=== PATIENT | male | born 1960 | race Caucasian/White ===

== ENCOUNTER 2016-09-10 04:37 | Emergency (ER) | payer OTHER ==
--- NOTE | 2016-09-10 07:10 | ED CLINICAL REPORT ---
Clinical Report - Physicians/Mid Levels [facility] [address] [place] [address] 09/10/2016 4:38 Patient: RANDY WATERMAN Time Seen: 04:52. Arrived- By private vehicle. Historian- patient. HISTORY OF PRESENT ILLNESS Chief Complaint: WEAKNESS. This started about 1 week ago and is still present. The patient has had weakness. No numbness, tingling, visual disturbance, impaired swallowing or recent fall. No impaired speech (Pt states he has been dropping things intermittently with both hands.). No difficulty walking. At its maximum deficit described as mild. When seen in the E.D., it was gone. No dizziness, altered mental status, seizure or blackouts. Usually is alert and oriented X3 and has normal mobility. (PT states he has not been to a doctor in some time, and wonders if he "might be a diabetic".). Similar symptoms previously: None. Recent medical care: The patient was seen recently by a health care provider. ( Pt had a dental extraction 1 week ago.). REVIEW OF SYSTEMS No fever, head injury, chest pain, difficulty breathing or cough. No sputum production, sore throat, abdominal pain, nausea or black stools. No difficulty with urination, skin rash, enlarged lymph nodes, joint pain or vomiting. No bloody stools or back pain. The patient has had a headache (for 2 days). He has had diarrhea (for 2 days). All systems otherwise negative, except as recorded above. PAST HISTORY Problems: no known problems. Additional Surgeries: Shoulder Surgery. Wrist surgery. Medications: Advil Oral. Allergies: NKDA. SOCIAL HISTORY Never smoker. No alcohol use or drug use. ADDITIONAL NOTES The nursing notes have been reviewed. PHYSICAL EXAM Vital Signs: 09/10/2016 04:46 BP: 100/55. HR: 103. RR: 20. O2 saturation: 94%. Temp: 98.6 F. Pain level now: 5/10. Have been reviewed. Appearance: Alert. No acute distress. Head: Head atraumatic. Eyes: Pupils equal, round and reactive to light. ENT: Normal ENT inspection. Airway intact. (Pt has a socket which is closing and appears to have healthy tissue. No gingival lesions otherwise.). Neck: Normal inspection. Neck supple. CVS: Normal heart rate and rhythm. Heart sounds normal. Pulses normal. Respiratory: No respiratory distress. Breath sounds normal. Abdomen: Soft and nontender. Back: Normal inspection. No CVA tenderness. Skin: Skin warm and dry. Normal skin color. No rash. Normal skin turgor. Extremities: Extremities exhibit normal ROM. No lower extremity edema. Neuro: Alert. Oriented X 3. Mood/affect normal. Speech normal. Cranial nerves normal (as tested). No cerebellar findings. No motor deficit. No sensory deficit. LABS, X-RAYS, AND EKG EKG: EKG time: (0510). No acute process. No acute ischemia. Normal sinus rhythm. Normal P waves. Normal QRS complex. Normal ST and T waves, QT and QTc. Prior EKG unavailable. The study has been interpreted contemporaneously by me. The study has been independently viewed by me. The EKG appears to be a good tracing. Laboratory Tests: UA-Culture if indicated: (JUDIT: 09/10/2016 06:20) ( MsgRcvd 09/10/2016 06:34) Final results Test Result Flag Units (Reference) URINE COLOR YELLOW URINE APPEARANCE CLEAR URINE GLUCOSE NEGATIVE (NEGATIVE) URINE BILIRUBIN NEGATIVE (NEGATIVE) URINE BILIRUBIN ICTOTEST NEGATIVE (NEGATIVE) URINE KETONE TRACE (NEGATIVE) URINE SPECIFIC GRAVITY >= 1.030 (1.010-1.030) URINE PH 5.5 (5.0-8.0) URINE PROTEIN TRACE (NEGATIVE) URINE UROBILINOGEN 0.2 EU/dL (0.2-1.0) URINE NITRITE NEGATIVE (NEGATIVE) URINE BLOOD TRACE-INTACT (NEGATIVE) URINE LEUK ESTERASE NEGATIVE (NEGATIVE) URINE RBC 0-1 rbc/hpf (0-1) URINE WBC 1-3 wbc/hpf (0-1) URINE EPITHELIAL CELLS RARE EPI/hpf (0-5) URINE BACTERIA NONE SEEN (NONE SEEN) URINE COMMENT CULT NOT INDICATED HYALINE CAST: 1-3/LPFURINE CULTURES ARE SET-UP BASED ON THE FOLLOWING CRITERIA:POSITIVE NITRITEPOSITIVE LEUKOCYTE ESTERASEGREATER THAN 10 WHITE BLOOD CELLSMODERATE (2+) OR GREATER BACTERIA CBC w Diff: (JUDIT: 09/10/2016 05:10) ( MsgRcvd 09/10/2016 05:22) Final results Test Result Flag Units (Reference) WHITE BLOOD COUNT 6.5 K/uL (4.5-11.5) RED BLOOD COUNT 5.27 M/uL (4.50-5.90) HEMOGLOBIN 16.1 gm/dL (13.5-17.5) HEMATOCRIT 47.5 % (41.0-53.0) MEAN CELL VOLUME 90 fL (80-100) MEAN CORPUSCULAR HGB 31 pg (26-34) MEAN CORPUSCULAR HGB CONC 34 g/dL (31-37) RED CELL DISTRIBUTION WIDTH 13.0 % (11.6-14.8) PLATELET COUNT 231 K/uL (150-400) NEUTROPHIL % 59.3 % (50-75) LYMPH % 28.9 % (25-40) MONO % 8.5 % (3-14) EOSINOPHIL % 2.6 % (0-4) BASOPHIL % 0.7 % (0-2) CHEM 13 PANEL: (JUDIT: 09/10/2016 05:10) ( MsgRcvd 09/10/2016 05:35) Final results Test Result Flag Units (Reference) GLUCOSE 210 H mg/dL (70-110) BUN 18 mg/dL (7-18) CREATININE 1.4 H mg/dL (0.6-1.3) Estimated GFR 55.92 mL/min Estimated GFR- >60 mL/min Note: Persistent reduction over 3 months in eGFR<60 mL/min/1.73 m2 defines CKD. Patients with eGFR values>=60 mL/min/1.73 m2 may also have CKD if evidence ofpersistent proteinuria. Additional information may be foundat www.kidney.org. SODIUM 137 mmol/L (136-145) POTASSIUM 4.7 mmol/L (3.5-5.1) CHLORIDE 99 mmol/L (98-107) CARBON DIOXIDE 26 mmol/L (21-32) CALCIUM 10.0 mg/dL (8.5-10.1) TOTAL PROTEIN 7.8 g/dL (6.4-8.2) ALBUMIN 3.9 g/dL (3.3-5.0) BILIRUBIN, TOTAL 1.1 H mg/dL (0.0-1.0) ALKALINE PHOSPHATASE 79 U/L (46-116) AST (SGOT) 22 U/L (15-37) ALT (SGPT) 30 U/L (12-78) MAGNESIUM 1.9 mg/dL (1.8-2.4) CPK 130 U/L (24-260) TROPONIN I <0.05 L ng/mL (0.00-1.5) TROPONIN REFERENCE RANGE:<0.1 NEGATIVE0.1-1.5 INDETERMINANT>1.5 POSITIVE . Pulse Oximetry: 09/10/2016 04:46 O2 saturation: 94%. (FIO2 - room air). Interpretation: normal. PROGRESS AND PROCEDURES Course of Care: Pt was given a liter of NS, and worked up for his fatigue. Pt's neurologic exam was normal. Work-up was unremarkable, other than a moderately elevated blood glucose, which I have discussed with the pt. I will put him on a low dose of metformin and prescribe a glucometer, and have advised him to follow for this within the week. We have discussed withholding the medication if his blood sugar is normal. Patient counseled in person regarding the patient's stable condition, test results, diagnosis and need for follow-up. Concerns were addressed. Old medical records reviewed. Disposition: Discharged. Condition: stable and improved. CLINICAL IMPRESSION Moderate hyperglycemia INSTRUCTIONS (Your blood sugar was high. You most likely do have diabetes, and will need to follow up to decide the best treatment for this. Please make this appointment right away. No other abnormalities were found.). Warnings: Further evaluation is necessary. It is very important to follow up with a physician. GENERAL WARNINGS: Return or contact your physician immediately if your condition worsens or changes unexpectedly, if not improving as expected, or if other problems arise. Your Current Medications: CONTINUE TAKING THE FOLLOWING MEDICATIONS: Advil Oral. Prescription Medications: Metformin 500 mg: take 1 orally every 24 hours. Dispense fifteen (15). No refills. Understanding of the discharge instructions verbalized by patient. Follow-up with: [facility], , , [address], , [facility] [id number] Follow up. Call for the next available appointment. Reason for referral: Establish care, new-onset diabetes. (Electronically signed by Janice Angel MD 09/15/2016 12:21)
--- NOTE | 2016-09-10 07:10 | ED NURSING NOTES ---
Clinical Report - Nurses [facility] [address] [place] [address] 09/10/2016 4:38 Patient: RANDY WATERMAN TRIAGE Triage time 0445. Acuity: LEVEL 3. Chief Complaint: (generalized weakness). CHELO COMA SCORE: [place] Coma Scale: 15- eyes open spontaneously (4); best verbal response- oriented x 4 (5); best motor response- obeys commands (6). --04:54 Baylee Jones R.N. 04:46 09/10/16. BP: 100/55. HR: 103. RR: 20 (unlabored). O2 saturation: 94% on room air. Temp: 98.6 F (oral). Pain level now: 510. --04:54 Baylee Jones R.N. Weight: 106.5 kg stated. Height/Length: 66 inches Per Patient. BMI: 37.9. --04:45 Baylee Jones R.N. Medications Advil Oral. --04:53 Baylee Jones R.N. Medication/allergy information source: the patient. --04:54 Baylee Jones R.N. Allergies NKDA. --04:52 Baylee Jones R.N. History Arrived by private vehicle. Historian: patient. Accompanied by family. Primary physician (none). ( pt c/o generalized weakness over the past week, after having a tooth extracted. pt states he's ate tomato soup and drank other fluids, but no solid food. pt also c/o headache x 2 days, and had diarrhea x 2days. pt states he's been dropping things the past 3-4 weeks as well.). Onset. (1 weeks ago). Treatment DATABASE ADMINISTRATOR: None. SOCIAL HX: Never smoker. No alcohol use or drug use. ABUSE ASSESSMENT: No report of abuse. FALL RISK ASSESSMENT: Fall risk assessment completed. No fall risk identified. NUTRITIONAL RISK ASSESSMENT: The nutritional risk assessment revealed no deficiencies. FUNCTIONAL ASSESSMENT: Functional assessment: no impairments noted. LEARNING NEEDS ASSESSMENT: The learning needs assessment revealed no barriers. SKIN INTEGRITY ASSESSMENT: Skin integrity risk assessment completed. No skin integrity risk identified. --04:54 Baylee Jones R.N. ADDITIONAL SURGERIES: Shoulder Surgery. Wrist surgery. --04:54 Baylee Jones R.N. Interventions ID band on patient. To treatment room. --04:54 Baylee Jones R.N. PHYSICAL ASSESSMENT 05:00. To room via wheelchair. GENERAL / NEURO / PSYCH: Alert. Oriented X 4. Appears in no acute distress. He has had generalized weakness. HEENT: Pupils equal, round and reactive to light. No facial asymmetry noted. Mucous membranes are pink. RESPIRATORY: Respirations not labored. CVS: Capillary refill less than 2 seconds. Pulses within normal limits. GI / : Abdomen soft and nontender. SKIN: Skin intact. Skin is warm and dry. Normal skin turgor. --05:38 Baylee Jones R.N. NURSING PROGRESS NOTES 04:50. Pulse oximeter and NIBP monitor placed on patient. Patient gowned. Head of bed elevated. Reassurance given. Two patient identifiers checked. Call light placed in reach. Side rails up x 1. Bed placed in lowest position. Brakes of bed on. Patient ready for evaluation. --04:55 Baylee Jones R.N. EKG time: (05:10 Sep 10 2016). EKG was performed by a tech and shown to the ED physician. --05:12 Hunter Vincent 05:10 09/10/2016 Site #1 started via IV in the right antecubital space with an 20g angiocath, with aseptic technique and good blood return; one attempt. Blood drawn: rainbow set. Labeled in the presence of the patient and sent to the lab. Saline lock flushed with 10 mL saline. --05:13 Baylee Jones R.N. technical services specialist, pulse oximeter and NIBP monitor placed on patient; glaze mixer- Lead II. --05:14 Baylee Jones R.N. 05:28 09/10/2016 Started bag #1 1000 mL IV Fluids IV NS (Saline); at 1000 mL/hr over 1 hour(s) via site #1. Allergies verified and confirmed 5 rights. IV patency established. IV site checked: no pain, redness, or swelling. IV flushed thoroughly pre- and post-medication administration. --05:28 Melva Maya <<STRICKEN ENTRY-- pt resting, waitig for lab results. --05:50 Baylee Jones R.N. --END STRIKE>> Correction --05:51 Baylee Jones R.N. pt resting, waiting for lab results. at bedside. --05:51 Baylee Jones R.N. 05:15 09/10/16. BP: 98/75. HR: 102. RR: 18 (unlabored). O2 saturation: 95% on room air. Pain level now: 0/10. --05:58 Baylee Jones R.N. 05:45 09/10/16. BP: 108/69. HR: 98. RR: 18 (unlabored). O2 saturation: 95% on room air. Pain level now: 0/10. --05:59 Baylee Jones R.N. labs resulted, MD notified. received orders. --06:16 Baylee Jones R.N. 06:20 urine specimen collected, labeled in front of patient and sent to lab. --06:26 Baylee Jones R.N. 06:30 09/10/2016 IV Fluids IV NS Discontinued: bag #1 completed. Total amount infused: 1000 ml mL. IV patency established. IV site checked: no pain, redness, or swelling. IV flushed thoroughly. --06:52 Baylee Jones R.N. 06:50 09/10/16. BP: 100/72. HR: 99. RR: 18 (unlabored). O2 saturation: 98% on room air. Temp: deferred. Pain level now: 0/10. --06:52 Baylee Jones R.N. late entry - called @ 06:40, pt results completed. --06:53 Baylee Jones R.N. Care transferred and report given (NASEEM Nelson). --07:05 Baylee Jones R.N. Care transferred and report received. --07:11 Leslie Mohan R.N. DISPOSITION / DISCHARGE 07:12 09/10/16. BP: 111/71. HR: 98. RR: 16. O2 saturation: 97% on room air. Temp: 98.2 F (oral). Pain level now: 07/09. --07:16 Leslie Mohan R.N. Condition at departure: stable. No learning barriers present. Discharge instructions provided and reviewed with the patient. Reviewed medication(s) side effects, precautions, dosing and course information. Prescription(s) given to the patient. Patient verbalized understanding. Written instructions provided in Persian. The patient was discharged home and accompanied by spouse. He left the Emergency Department ambulatory and via private vehicle. Spouse driving. --07:24 Leslie Mohan R.N. 07:24 09/10/2016 Site #1 removed upon discharge. Catheter intact. Manual pressure and bandage applied. --07:24 Leslie Mohan R.N. Locked/Released at 09/10/2016 7:24 by Leslie Mohan R.N.
--- NOTE | 2016-09-10 07:10 | ED ORDER SUMMARY ---
..... Patient: RANDY WATERMAN Order[facility] VisitID: [id number] [place] [address] 56y, M Registration Date/Time: 09/10/2016 ORDER SHEET Weight: 106.5 kg (stated) Allergies: NKDA GENERAL ORDERS: CMP Urgent (05:02 09/10/2016 Sean R.N. verbal order read back to Jennifer ALANIS) (Ack 5:11 SRedmond) (5:28 HSoule) CBC w Diff Urgent (05:09/10/2016 Sean R.N. verbal order read back to Jennifer ALANIS) (Ack 5:11 SRedmond) (5:31 AMcQuoid ER Tech1) EKG - ER Stat (05:09/10/2016 Sean Martinez.N. verbal order read back to Jennifer ALANIS) (5:11 SRedmond) Cardiac Panel Stat (05:09/10/2016 HKone R.N. per protocol) (5:31 AMcQuoid ER Tech1) Salesperson [employer] (Continuous) (05:22 09/10/2016 Jennifer ALANIS) (5:26 HKone R.N.) Pulse oximeter (05:09/10/2016 Jennifer ALANIS) (5:26 HKone R.N.) UA-Culture if indicated Urgent (06:14 09/10/2016 HKone R.N. verbal order read back to Jennifer ALANIS) (Ack 6:19 AMcQuoid ER Tech1) (6:31 AMcQuoid ER Tech1) MEDICATION ORDERS: IV FLUIDS: IV Saline Lock (05:02 09/10/2016 Sean R.N. verbal order read back to Jennifer ALANIS) (5:13 HKone R.N.) IV NS : initial bolus 1000 mL (1000 mL/hr), then none - (NOW) (05:09/10/2016 Jennifer ALANIS) (Ack 5:25 HSoule) (5:28 HSoule) ORDER SHEET NOTES: [Electronically signed by Leslie Mohan R.N. (07:24 09/10/2016)] [Electronically signed by Janice Angel MD (12:21 09/15/2016)] [Electronically locked/signed by Leslie Mohan R.N. (07:24 09/10/2016)]
--- NOTE | 2016-09-10 07:10 | ED ORDER SUMMARY ---
..... Patient: RANDY WATERMAN OrderSheet [facility] VisitID: [id number] [place] [address] 56y, M Registration Date/Time: 09/10/2016 ORDER SHEET Weight: 106.5 kg (stated) Allergies: NKDA GENERAL ORDERS: CMP Urgent (05:02 09/10/2016 Sean R.N. verbal order read back to Jennifer ALANIS) (Ack 5:11 SRedmond) (5:28 HSoule) CBC w Diff Urgent (05:09/10/2016 Sean R.N. verbal order read back to Jennifer ALANIS) (Ack 5:11 SRedmond) (5:31 AMcQuoid ER Tech1) EKG - ER Stat (05:09/10/2016 Sean Martinez.N. verbal order read back to Jennifer ALANIS) (5:11 SRedmond) Cardiac Panel Stat (05:09/10/2016 HKone R.N. per protocol) (5:31 AMcQuoid ER Tech1) Restoration Sil[employer] (Continuous) (05:22 09/10/2016 Jennifer ALANIS) (5:26 HKone R.N.) Pulse oximeter (05:09/10/2016 Jennifer ALANIS) (5:26 HKone R.N.) UA-Culture if indicated Urgent (06:14 09/10/2016 HKone R.N. verbal order read back to Jennifer ALANIS) (Ack 6:19 AMcQuoid ER Tech1) (6:31 AMcQuoid ER Tech1) MEDICATION ORDERS: IV FLUIDS: IV Saline Lock (05:02 09/10/2016 Sean R.N. verbal order read back to Jennifer ALANIS) (5:13 HKone R.N.) IV NS : initial bolus 1000 mL (1000 mL/hr), then none - (NOW) (05:09/10/2016 Jennifer ALANIS) (Ack 5:25 HSoule) (5:28 HSoule) ORDER SHEET NOTES: [Electronically signed by Leslie Mohan R.N. (07:24 09/10/2016)] [Electronically signed by Janice Angel MD (12:21 09/15/2016)] [Electronically locked/signed by Leslie Mohan R.N. (07:24 09/10/2016)]
--- NOTE | 2016-09-10 07:10 | ED NURSING NOTES ---
Clinical Report - Nurses [facility] [address] [place] [address] 09/10/2016 4:38 Patient: RANDY WATERMAN TRIAGE Triage time 0445. Acuity: LEVEL 3. Chief Complaint: (generalized weakness). CHELO COMA SCORE: [place] Coma Scale: 15- eyes open spontaneously (4); best verbal response- oriented x 4 (5); best motor response- obeys commands (6). --04:54 Baylee Jones R.N. 04:46 09/10/16. BP: 100/55. HR: 103. RR: 20 (unlabored). O2 saturation: 94% on room air. Temp: 98.6 F (oral). Pain level now: 510. --04:54 Baylee Jones R.N. Weight: 106.5 kg stated. Height/Length: 66 inches Per Patient. BMI: 37.9. --04:45 Baylee Jones R.N. Medications Advil Oral. --04:53 Baylee Jones R.N. Medication/allergy information source: the patient. --04:54 Baylee Jones R.N. Allergies NKDA. --04:52 Baylee Jones R.N. History Arrived by private vehicle. Historian: patient. Accompanied by family. Primary physician (none). ( pt c/o generalized weakness over the past week, after having a tooth extracted. pt states he's ate tomato soup and drank other fluids, but no solid food. pt also c/o headache x 2 days, and had diarrhea x 2days. pt states he's been dropping things the past 3-4 weeks as well.). Onset. (1 weeks ago). Treatment ASSISTANT CORPORATE SECRETARY: None. SOCIAL HX: Never smoker. No alcohol use or drug use. ABUSE ASSESSMENT: No report of abuse. FALL RISK ASSESSMENT: Fall risk assessment completed. No fall risk identified. NUTRITIONAL RISK ASSESSMENT: The nutritional risk assessment revealed no deficiencies. FUNCTIONAL ASSESSMENT: Functional assessment: no impairments noted. LEARNING NEEDS ASSESSMENT: The learning needs assessment revealed no barriers. SKIN INTEGRITY ASSESSMENT: Skin integrity risk assessment completed. No skin integrity risk identified. --04:54 Baylee Jones R.N. ADDITIONAL SURGERIES: Shoulder Surgery. Wrist surgery. --04:54 Baylee Jones R.N. Interventions ID band on patient. To treatment room. --04:54 Baylee Jones R.N. PHYSICAL ASSESSMENT 05:00. To room via wheelchair. GENERAL / NEURO / PSYCH: Alert. Oriented X 4. Appears in no acute distress. He has had generalized weakness. HEENT: Pupils equal, round and reactive to light. No facial asymmetry noted. Mucous membranes are pink. RESPIRATORY: Respirations not labored. CVS: Capillary refill less than 2 seconds. Pulses within normal limits. GI / : Abdomen soft and nontender. SKIN: Skin intact. Skin is warm and dry. Normal skin turgor. --05:38 Baylee Jones R.N. NURSING PROGRESS NOTES 04:50. Pulse oximeter and NIBP monitor placed on patient. Patient gowned. Head of bed elevated. Reassurance given. Two patient identifiers checked. Call light placed in reach. Side rails up x 1. Bed placed in lowest position. Brakes of bed on. Patient ready for evaluation. --04:55 Baylee Jones R.N. EKG time: (05:10 Sep 10 2016). EKG was performed by a tech and shown to the ED physician. --05:12 Hunter Vincent 05:10 09/10/2016 Site #1 started via IV in the right antecubital space with an 20g angiocath, with aseptic technique and good blood return; one attempt. Blood drawn: rainbow set. Labeled in the presence of the patient and sent to the lab. Saline lock flushed with 10 mL saline. --05:13 Baylee Jones R.N. youth nutritional monitor, pulse oximeter and NIBP monitor placed on patient; hospital monitor- Lead II. --05:14 Baylee Jones R.N. 05:28 09/10/2016 Started bag #1 1000 mL IV Fluids IV NS (Saline); at 1000 mL/hr over 1 hour(s) via site #1. Allergies verified and confirmed 5 rights. IV patency established. IV site checked: no pain, redness, or swelling. IV flushed thoroughly pre- and post-medication administration. --05:28 Melva Maya <<STRICKEN ENTRY-- pt resting, waitig for lab results. --05:50 Baylee Jones R.N. --END STRIKE>> Correction --05:51 Baylee Jones R.N. pt resting, waiting for lab results. at bedside. --05:51 Baylee Jones R.N. 05:15 09/10/16. BP: 98/75. HR: 102. RR: 18 (unlabored). O2 saturation: 95% on room air. Pain level now: 0/10. --05:58 Baylee Jones R.N. 05:45 09/10/16. BP: 108/69. HR: 98. RR: 18 (unlabored). O2 saturation: 95% on room air. Pain level now: 0/10. --05:59 Baylee Jones R.N. labs resulted, MD notified. received orders. --06:16 Baylee Jones R.N. 06:20 urine specimen collected, labeled in front of patient and sent to lab. --06:26 Baylee Jones R.N. 06:30 09/10/2016 IV Fluids IV NS Discontinued: bag #1 completed. Total amount infused: 1000 ml mL. IV patency established. IV site checked: no pain, redness, or swelling. IV flushed thoroughly. --06:52 Baylee Jones R.N. 06:50 09/10/16. BP: 100/72. HR: 99. RR: 18 (unlabored). O2 saturation: 98% on room air. Temp: deferred. Pain level now: 0/10. --06:52 Baylee Jones R.N. late entry - called @ 06:40, pt results completed. --06:53 Baylee Jones R.N. Care transferred and report given (NASEEM Nelson). --07:05 Baylee Jones R.N. Care transferred and report received. --07:11 Leslie Mohan R.N. DISPOSITION / DISCHARGE 07:12 09/10/16. BP: 111/71. HR: 98. RR: 16. O2 saturation: 97% on room air. Temp: 98.2 F (oral). Pain level now: 07/09. --07:16 Leslie Mohan R.N. Condition at departure: stable. No learning barriers present. Discharge instructions provided and reviewed with the patient. Reviewed medication(s) side effects, precautions, dosing and course information. Prescription(s) given to the patient. Patient verbalized understanding. Written instructions provided in Wolof. The patient was discharged home and accompanied by spouse. He left the Emergency Department ambulatory and via private vehicle. Spouse driving. --07:24 Leslie Mohan R.N. 07:24 09/10/2016 Site #1 removed upon discharge. Catheter intact. Manual pressure and bandage applied. --07:24 Leslie Mohan R.N. Locked/Released at 09/10/2016 7:24 by Leslie Mohan R.N.
--- NOTE | 2016-09-15 12:21 | ED MED RECONCILIATION SUMMARY ---
Patient: RANDY WATERMAN Medication Reconciliation Report [facility] VisitID: [id number] [address] [place] [address] 56y, M Registration Date/Time: 09/10/2016 Weight: 106.5 kg Height/Length: 66 in. BMI: 37.9 ALLERGIES: NKDA The patient's Home Medications are listed below: CONTINUE TAKING THE FOLLOWING MEDICATIONS: Advil Oral The source(s) of the original Home Medication information: patient The following Medications were given to the patient in the Emergency Department: IV NS IV Fluids bolus 0, then 1000 mL/hr, administered: 09/10/2016 5:28:00 AM The following Medications were prescribed to the patient: Metformin 500 mg: take 1 orally every 24 hours. Dispense fifteen (15). No refills. -- Janice Angel MD
--- NOTE | 2016-09-15 12:21 | ED DISCHARGE INSTRUCTIONS ---
Patient: RANDY WATERMAN General Instructions [facility] VisitID: [id number] [address] [place] [address] 56y, M Registration Date/Time: 09/10/2016 Moderate hyperglycemia INSTRUCTIONS (Your blood sugar was high. You most likely do have diabetes, and will need to follow up to decide the best treatment for this. Please make this appointment right away. No other abnormalities were found.). Warnings: Further evaluation is necessary. It is very important to follow up with a physician. GENERAL WARNINGS: Return or contact your physician immediately if your condition worsens or changes unexpectedly, if not improving as expected, or if other problems arise. Your Current Medications: CONTINUE TAKING THE FOLLOWING MEDICATIONS: Advil Oral. Prescription Medications: Metformin 500 mg: take 1 orally every 24 hours. Dispense fifteen (15). No refills. Understanding of the discharge instructions verbalized by patient. Follow-up with: [facility], , , [address], , [place], [id number] Follow up. Call for the next available appointment. Reason for referral: Establish care, new-onset diabetes. ADDITIONAL INFORMATION Diabetes with High Blood Sugar You have been treated for high blood sugar (hyperglycemia). This may be becauseof an infection or other illness;eating too many sweets or starches ; not taking enough insulin. Home care High blood sugar may cause symptoms that you can learn to recognize, such as these: If you feel like your blood sugar may be too high, measure it using a blood or urine test. If it is above your usual range, use the "sliding scale"rRegular insulin dose your doctor gave you to correct this. If no "sliding scale" orders were given, contact your doctor for further advice. If your blood sugar is over 300, and you can't reach your doctor, go to the hospital emergency room. Monitor and write down your blood sugars - and insulin dose, if you take insulin - atleast twice a day. Do this before breakfast and before dinner. Do this for the next 3 to 5 days. Follow-up care Follow up with your health care provderduring the next week to review your blood sugar records. You will find out if you need to adjust your dose of insulin or other medicine for blood sugar. When to seek medical care Get prompt medical attention if either of these occur: High blood sugar.Symptoms are frequent urination, feeling dizzy, thirst, headache, nausea or vomiting, abdominal pain, and drowsiness or loss of consciousness. Low blood sugar. Symptoms are fatigue, headache, shakes, excess sweating, hunger, anxiety, reduced vision, drowsiness, weakness, confusion or loss of consciousness, and seizure. You have been given the following additional information: Diabetic Hyperglycemia (Electronically signed by Janice Angel MD 09/15/2016 12:21)
--- NOTE | 2016-09-15 12:21 | ED DISCHARGE INSTRUCTIONS ---
Patient: RANDY WATERMAN General Instructions [facility] VisitID: [id number] [address] [place] [address] 56y, M Registration Date/Time: 09/10/2016 Moderate hyperglycemia INSTRUCTIONS (Your blood sugar was high. You most likely do have diabetes, and will need to follow up to decide the best treatment for this. Please make this appointment right away. No other abnormalities were found.). Warnings: Further evaluation is necessary. It is very important to follow up with a physician. GENERAL WARNINGS: Return or contact your physician immediately if your condition worsens or changes unexpectedly, if not improving as expected, or if other problems arise. Your Current Medications: CONTINUE TAKING THE FOLLOWING MEDICATIONS: Advil Oral. Prescription Medications: Metformin 500 mg: take 1 orally every 24 hours. Dispense fifteen (15). No refills. Understanding of the discharge instructions verbalized by patient. Follow-up with: [facility], , , [address], , [place], [id number] Follow up. Call for the next available appointment. Reason for referral: Establish care, new-onset diabetes. ADDITIONAL INFORMATION Diabetes with High Blood Sugar You have been treated for high blood sugar (hyperglycemia). This may be becauseof an infection or other illness;eating too many sweets or starches ; not taking enough insulin. Home care High blood sugar may cause symptoms that you can learn to recognize, such as these: If you feel like your blood sugar may be too high, measure it using a blood or urine test. If it is above your usual range, use the "sliding scale"rRegular insulin dose your doctor gave you to correct this. If no "sliding scale" orders were given, contact your doctor for further advice. If your blood sugar is over 300, and you can't reach your doctor, go to the hospital emergency room. Monitor and write down your blood sugars - and insulin dose, if you take insulin - atleast twice a day. Do this before breakfast and before dinner. Do this for the next 3 to 5 days. Follow-up care Follow up with your health care provderduring the next week to review your blood sugar records. You will find out if you need to adjust your dose of insulin or other medicine for blood sugar. When to seek medical care Get prompt medical attention if either of these occur: High blood sugar.Symptoms are frequent urination, feeling dizzy, thirst, headache, nausea or vomiting, abdominal pain, and drowsiness or loss of consciousness. Low blood sugar. Symptoms are fatigue, headache, shakes, excess sweating, hunger, anxiety, reduced vision, drowsiness, weakness, confusion or loss of consciousness, and seizure. You have been given the following additional information: Diabetic Hyperglycemia (Electronically signed by Janice Angel MD 09/15/2016 12:21)
--- NOTE | 2016-09-15 12:21 | ED MAR SUMMARY ---
..... Medication Administration Record [facility] [address] [place] [address] Patient: RANDY WATERMAN Visit ID: [id number] 56y, M Weight: 106.5 kg Height/Length: 66 in BMI: 37.9 ALLERGIES: NKDA Start 05:28 09/10/2016 Melva Maya,, Stop 06:30 09/10/2016 Baylee Jones R.N. Medication Administered: IV NS (SALINE), Dose: IV Fluids over 1 hour(s), Rate: 1000 mL/hr, Dispensed: 1000 mL bag, Site: #1 right AC. Medication Ordered: IV NS : initial bolus 1000 mL (1000 mL/hr), then none - (NOW).
--- NOTE | 2016-09-15 12:21 | ED MED RECONCILIATION SUMMARY ---
Patient: RANDY WATERMAN Medication Reconciliation Report [facility] VisitID: [id number] [address] [place] [address] 56y, M Registration Date/Time: 09/10/2016 Weight: 106.5 kg Height/Length: 66 in. BMI: 37.9 ALLERGIES: NKDA The patient's Home Medications are listed below: CONTINUE TAKING THE FOLLOWING MEDICATIONS: Advil Oral The source(s) of the original Home Medication information: patient The following Medications were given to the patient in the Emergency Department: IV NS IV Fluids bolus 0, then 1000 mL/hr, administered: 09/10/2016 5:28:00 AM The following Medications were prescribed to the patient: Metformin 500 mg: take 1 orally every 24 hours. Dispense fifteen (15). No refills. -- Janice Angel MD
--- NOTE | 2016-09-15 12:21 | ED MAR SUMMARY ---
..... Medication Administration Record [facility] [address] [place] [address] Patient: RANDY WATERMAN Visit ID: [id number] 56y, M Weight: 106.5 kg Height/Length: 66 in BMI: 37.9 ALLERGIES: NKDA Start 05:28 09/10/2016 Melva Maya,, Stop 06:30 09/10/2016 Baylee Jones R.N. Medication Administered: IV NS (SALINE), Dose: IV Fluids over 1 hour(s), Rate: 1000 mL/hr, Dispensed: 1000 mL bag, Site: #1 right AC. Medication Ordered: IV NS : initial bolus 1000 mL (1000 mL/hr), then none - (NOW).
== END 2016-09-10 07:21 | disposition home or self-care (01) ==
LOC: ED SRH 04:37
DX: R73.9 Hyperglycemia, unspecified (principal)
CPT/HCPCS: 90004; 90100; 90616; 92610; 92720; 95059

== ENCOUNTER 2016-09-20 09:13 | Outpatient (CLI) | payer OTHER ==
--- NOTE | 2016-09-20 10:00 | DIAGNOSTIC IMAGING REPORT ---
PROCEDURE: CT HEAD WITHOUT CONTRAST INDICATION: CONFUSION TECHNIQUE: Axial CT images were acquired through the head. Coronal and sagittal reformations were created. COMPARISON: None. FINDINGS: There is decreased attenuation seen in the subcortical white matter of the left insula and the left posterior temporal region. These probably represent small infarcts. There is also calcification in the right vertebral artery. No intracranial hemorrhage or extraaxial fluid collections. Ventricles are normal in size, shape and position. There is no mass, mass effect or midline shift. The calvarium is intact. The paranasal sinuses and mastoid air cells are normally aerated. The extracranial soft tissues and orbits are normal. IMPRESSION: 1. Probable small infarcts in the left insular region and the posterior temporal region. Vertebral artery calcification. Recommend MRI. All CT scans at this facility use dose modulation, iterative reconstruction, and/or weight-based dosing when appropriate to reduce radiation dose to as low as reasonably achievable.
== END 2016-09-20 23:00 ==
LOC: CT SRH 09:13
DX: R41.0 Disorientation, unspecified (principal); I77.89 Other specified disorders of arteries and arterioles

== ENCOUNTER 2016-10-11 09:12 | Outpatient (CLI) | payer OTHER ==
--- NOTE | 2016-10-11 10:56 | DIAGNOSTIC IMAGING REPORT ---
PROCEDURE: MR BRAIN WITHOUT CONTRAST INDICATION: CEREBRAL INFARCTION TECHNIQUE: Multiplanar multisequence MRI imaging of the brain without contrast. COMPARISON: Head CT 09/20/2016 FINDINGS: There is a new infarct in the posterior limb of the left internal capsule. This measures 15 mm in length. The midline structures are normally formed. The ventricular system is normal in size. Basal cisterns are patent. Flow voids in the major intracranial vessels are normal. Normal signal in the visible bones. The sinuses are normally aerated. Visible extracranial soft tissues including the orbits are normal. IMPRESSION: 1. 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
== END 2016-10-11 23:00 ==
LOC: MRI SRH 09:12
DX: I63.9 Cerebral infarction, unspecified (principal)

== ENCOUNTER 2016-11-08 10:13 | Outpatient (CLI) | payer OTHER ==
--- NOTE | 2016-11-08 10:57 | DIAGNOSTIC IMAGING REPORT ---
PROCEDURE: XR RIBS BILATERAL INDICATION: RIB PX ON RIGHT SIDE FALL TECHNIQUE: Two views of the right ribs with single PA view chest. COMPARISON: None. FINDINGS: RIGHT RIBS: No displaced rib fractures. No suspicious rib lesions. CHEST: Normal cardiomediastinal contour. Clear lungs without pleural effusion, pneumothorax, or contusion. The other visible osseous structures are intact. IMPRESSION: 1. Intact right ribs. 2. Normal chest without radiographic evidence of trauma.
== END 2016-11-08 23:00 | disposition home or self-care (01) ==
LOC: XR SRH 10:13
DX: R07.81 Pleurodynia (principal)